=== PATIENT | female | born 1960 | race Caucasian/White ===

== ENCOUNTER 2023-03-25 16:29 | Emergency (ER) | payer BC ==
[~2023-03-25] VITALS: Ht 175.3 cm; Wt 84.1 kg
[2023-03-25] MEDS ORDERED: morphine 4 MG/ML inj SYRINge IM ONE (17:55)
[2023-03-25] MEDS ORDERED: ondansetron 4mg rapidly disintigrating tab PO ONE (17:55)
[2023-03-25 18:08] LABS: BASOPHILS # (AUTO) 0.2 X10'3 (0-0.2); BASOPHILS % (AUTO) 0.7 % (0-1); EOSINOPHILS % (AUTO) 0 % (0-6); HEMATOCRIT 43.9 % (35.0-45.0); HEMOGLOBIN 14.7 g/dl (12.0-16.0); LYMPHOCYTES # (AUTO) 1.4 X10'3 (1.1-4.8); LYMPHOCYTES % (AUTO) 6.7 % (21-51); MEAN CORPUSCULAR HEMOGLOBIN 31.4 PG (27.0-31.0); MEAN CORPUSCULAR HGB CONC 33.4 g/dL (33.0-36.5); MEAN CORPUSCULAR VOLUME 93.9 FL (78-98); MEAN PLATELET VOLUME 9.6 FL (7.4-10.4); MONOCYTES # (AUTO) 1.2 X10'3 (0-0.9); MONOCYTES % (AUTO) 5.8 % (2-12); NEUTROPHILS # (AUTO) 18.5 X10'3 (1.8-7.7); NEUTROPHILS % (AUTO) 86.8 % (42-75); PLATELET COUNT 472 X10'3 (140-440); RED BLOOD COUNT 4.67 X10'6 (4.20-5.60); RED CELL DISTRIBUTION WIDTH 13.4 % (11.5-14.5); WHITE BLOOD COUNT 21.3 X10'3 (4.5-11.0)
[2023-03-25 18:11] LABS: ALANINE AMINOTRANSFERASE 52 U/L (12-78); ALBUMIN 4.5 G/DL (3.4-5.0); ALBUMIN/GLOBULIN RATIO 1.1 (1.1-1.5); ALKALINE PHOSPHATASE 199 IU/L (46-116); ANION GAP 14 (8-16); ASPARTATE AMINO TRANSFERASE 33 U/L (10-37); BILIRUBIN,TOTAL 1.3 MG/DL (0.1-1.0); BLOOD UREA NITROGEN 13 MG/DL (7-18); BUN/CREATININE RATIO 16.5 (10.0-20.0); CALCIUM 9.2 MG/DL (8.5-10.1); CHLORIDE 102 MMOL/L (99-107); CREATININE 0.79 MG/DL (0.40-0.90); GLUCOSE 172 MG/DL (70-104); LIPASE 51 U/L (73-393); POTASSIUM 3.7 MMOL/L (3.5-5.1); SODIUM 139 MMOL/L (135-145); TOTAL CARBON DIOXIDE 22.8 MMOL/L (24-32); TOTAL PROTEIN 8.6 G/DL (6.4-8.2); eGFR 74 ML/MIN
[2023-03-25] MEDS ORDERED: magnesium citrate 296ml oral solution PO ONE (19:00)
[2023-03-25] MEDS ORDERED: lactulose 20gm/30ml cup PO ONE (19:00)
[2023-03-25 22:09] VITALS: BP 128/81
== END 2023-03-25 22:10 | disposition home or self-care (01) ==
LOC: ER 16:31
DX: K59.00 Constipation, unspecified (principal)
CPT/HCPCS: 36415; 74176; 76700; 80053; 83690; 85025; 96372; 99285; J2270

== ENCOUNTER 2023-07-05 07:29 | Inpatient (IN) | payer BC ==
[2023-07-02 15:06] LABS: ALBUMIN 3.7 G/DL (3.4-5.0); ALBUMIN/GLOBULIN RATIO 0.9 (1.1-1.5); ALKALINE PHOSPHATASE 156 IU/L (46-116); BLOOD UREA NITROGEN 17 MG/DL (7-18); BUN/CREATININE RATIO 14.3 (10.0-20.0); CALCIUM 9.7 MG/DL (8.5-10.1); CHLORIDE 101 MMOL/L (99-107); CREATININE 1.19 MG/DL (0.40-0.90); PRE OP ALT 18 U/L (30-65); PRE OP ANION GAP 11 (8-16); PRE OP AST 26 U/L (10-37); PRE OP BILIRUB, TOTAL 0.7 MG/DL (0.0-1.0); PRE OP GLUCOSE 94 MG/DL (70-104); PRE OP SODIUM 137 MMOL/L (135-145); TOTAL CARBON DIOXIDE 24.8 MMOL/L (24-32); eGFR 46 ML/MIN
[2023-07-02 15:18] LABS: EOSINOPHILS # (AUTO) 0.2 X10'3 (0-0.9); LYMPHOCYTES # (AUTO) 2.1 X10'3 (1.1-4.8); LYMPHOCYTES % (AUTO) 20.2 % (21-51); MONOCYTES # (AUTO) 1.5 X10'3 (0-0.9)
[2023-07-02 15:20] LABS: BASOPHILS # (AUTO) 0.1 X10'3 (0-0.2); BASOPHILS % (AUTO) 0.7 % (0-1); EOSINOPHILS % (AUTO) 2.3 % (0-6); MEAN CORPUSCULAR HEMOGLOBIN 30.5 PG (27.0-31.0); MEAN CORPUSCULAR HGB CONC 33.5 g/dL (33.0-36.5); MEAN CORPUSCULAR VOLUME 91.1 FL (78-98); MEAN PLATELET VOLUME 10.2 FL (7.4-10.4); MONOCYTES % (AUTO) 14.3 % (2-12); NEUTROPHILS # (AUTO) 6.4 X10'3 (1.8-7.7); NEUTROPHILS % (AUTO) 62.5 % (42-75); PRE OP HEMOGLOBIN 13.4 g/dL (12.0-16.0); PRE OP PLATELET COUNT 379 X10'3 (140-440); PRE OP WHITE BLOOD COUNT 10.3 10'3 (4.8-10.8); RED BLOOD COUNT 4.39 X10'6 (4.20-5.60)
[~2023-07-05] VITALS: Ht 172.7 cm; Wt 82.2 kg
[2023-07-05] VITALS (23 sets, daily range): BP systolic 118–155; BP diastolic 77–104; PULSE 88–117; RESP 11–20; TEMP 97.9–98.8; O2SAT 90–97
[~2023-07-05 07:29] MED LIST: ASPI-128 PO; MALTODEXTRIN/FRUCTOSE 0.68 KCAL/ML LIQUID 296ML BOTTLE PO ONE; ceFOXitin 2GM-NS 100mL ADDvant 100 ML IV ONE; famotidine 20mg tablet PO ONE; heparin, porcine 5000 units/ml vial SQ ONE; metroNIDAZOLE-Flagyl 500mg/NS 100ML IVPB IV ONE; ringers solution, lacted 1,000 ML IV SCH
[2023-07-05] MEDS ORDERED: morphine 2 MG/ML inj. syringe IV PRN ×2 (08:55→10:20)
[2023-07-05] MEDS ORDERED: midazolam 1 mg/ML 2ml injection ONE (10:13)
[2023-07-05] MEDS ORDERED: propofol inj 20 ML IV ONE (10:13)
[2023-07-05] MEDS ORDERED: fentaNYL /PF 50mcg/ml 5ml ampule ONE (10:13)
[2023-07-05] MEDS ORDERED: rocuronium 10mg/ml inj IV ONE ×2 (10:13→12:52)
[2023-07-05] MEDS ORDERED: tobramycin 40mg/ml inj ONE (10:14)
[2023-07-05] MEDS ORDERED: povidone-iodine 10% ointment 1 APPLIC APPLIC TP ONE (10:14)
[2023-07-05] MEDS ORDERED: LIDOcaine 1% w/EPI 1:100,000 inj. MDV 50 ML VIAL ONE (10:14)
[2023-07-05] MEDS ORDERED: BUPIVAcaine/PF 2.5 mg/ml (0.25%) 30ml vial ONE (10:14)
[2023-07-05] MEDS ORDERED: morphine 4 MG/ML inj SYRINge IV PRN (10:20)
[2023-07-05] MEDS ORDERED: ringers solution, lacted 1,000 ML IV SCH (10:20)
[2023-07-05] MEDS ORDERED: ondansetron/PF 4mg/2ml inj IV PRN ×2 (10:20→14:15)
[2023-07-05] MEDS ORDERED: proCHLORperazine 10 MG/2 ml inj IV PRN (10:20)
[2023-07-05] MEDS ORDERED: meperidine/PF 25mg/ml syringe IV PRN ×3 (10:20)
[2023-07-05] MEDS ORDERED: neostigmine methylsulfate 1 MG/ML 10ml vial ONE (10:42)
[2023-07-05] MEDS ORDERED: ondansetron/PF 4mg/2ml inj ONE (10:42)
[2023-07-05] MEDS ORDERED: glycopyrrolate 0.2mg/ml inj ONE (10:42)
[2023-07-05] MEDS ORDERED: sevoflurane 250ml liquid IH ONE (10:42)
[2023-07-05] MEDS ORDERED: albumin (Human) 5% 250ml 250 ML IV ONE (12:49)
[2023-07-05] MEDS ORDERED: dexamethasone sod phosphate 4mg/ml inj. ONE (12:50)
[2023-07-05] MEDS ORDERED: acetaminophen 1,000mg/100ml IV 100 ML IV ONE (13:35)
[2023-07-05] MEDS ORDERED: naloxone 0.4 mg/ml inj IV PRN (14:15)
[2023-07-05] MEDS: HYDROmorph/NS 0.2 mg/ml PCA 100 ML IV SCH ×5 (14:53→23:00)
[2023-07-05] MEDS ORDERED: HYDROmorph/NS 0.2 mg/ml PCA 100 ML IV SCH (15:00)
[2023-07-05] MEDS: ceFOXitin inj 1,000 MG in normal saline 100ml IV soln 100 ML IV SCH (16:00)
[2023-07-05 18:23] LABS: BFAPPEAR BLOODY; BFSOURCE ASCITES FLD
[2023-07-05 18:24] LABS: BF RBC COUNT 10550 /CU MM; BF WBC COUNT 500 /CU MM (0-1000); BFCOLOR RED; BFVOLUME 95 ML
[2023-07-05 18:25] LABS: EOSINOPHILS,BODY FLUID 2 %; LYMPHOCYTES,BODY FLUID 58 %; MONOCYTES,BODY FLUID 40 %; NEUTROPHILS,BODY FLUID 0 %
[2023-07-05] MEDS: potassium CL 20mEq in D5-1/2NS 1,000 ML IV SCH (20:22)
[2023-07-05] MEDS: heparin, porcine 5000 units/ml vial SQ SCH (20:23)
[2023-07-05] MEDS: normal saline 1000ml 1,000 ML IV SCH (22:58)
[2023-07-06] MEDS: ceFOXitin inj 1,000 MG in normal saline 100ml IV soln 100 ML IV SCH (00:28)
[2023-07-06] MEDS: HYDROmorph/NS 0.2 mg/ml PCA 100 ML IV SCH ×12 (01:00→23:00)
[2023-07-06 02:00] VITALS: BP 140/78; PULSE 100; RESP 16; TEMP 97.8; O2SAT 94
[2023-07-06] MEDS: potassium CL 20mEq in D5-1/2NS 1,000 ML IV SCH ×3 (05:09→23:43)
[2023-07-06 06:00] VITALS: BP 146/81; PULSE 102; RESP 16; TEMP 97.7; O2SAT 95
[2023-07-06 07:09] LABS: BASOPHILS # (AUTO) 0.1 X10'3 (0-0.2); EOSINOPHILS % (AUTO) 0.3 % (0-6); HEMATOCRIT 35.3 % (35.0-45.0); HEMOGLOBIN 11.6 g/dl (12.0-16.0); LYMPHOCYTES # (AUTO) 2.4 X10'3 (1.1-4.8); LYMPHOCYTES % (AUTO) 20.1 % (21-51); MEAN CORPUSCULAR HGB CONC 32.8 g/dL (33.0-36.5); MEAN CORPUSCULAR VOLUME 91.3 FL (78-98); MONOCYTES # (AUTO) 1.9 X10'3 (0-0.9); NEUTROPHILS # (AUTO) 7.4 X10'3 (1.8-7.7); NEUTROPHILS % (AUTO) 62.6 % (42-75); PLATELET COUNT 344 X10'3 (140-440); RED BLOOD COUNT 3.86 X10'6 (4.20-5.60); RED CELL DISTRIBUTION WIDTH 13.3 % (11.5-14.5); WHITE BLOOD COUNT 11.8 X10'3 (4.5-11.0)
[2023-07-06 07:12] LABS: ANION GAP 10 (8-16); BLOOD UREA NITROGEN 10 MG/DL (7-18); BUN/CREATININE RATIO 8.5 (10.0-20.0); CALCIUM 8.9 MG/DL (8.5-10.1); CHLORIDE 102 MMOL/L (99-107); CREATININE 1.18 MG/DL (0.40-0.90); GLUCOSE 105 MG/DL (70-104); SODIUM 137 MMOL/L (135-145); TOTAL CARBON DIOXIDE 24.7 MMOL/L (24-32); eCRCL 51 ML/MIN; eGFR 47 ML/MIN
[2023-07-06 08:00] VITALS: RESP 16
[2023-07-06] MEDS: heparin, porcine 5000 units/ml vial SQ SCH ×2 (08:00→20:24)
[2023-07-06 08:36] LABS: PLATELET ESTIMATE NORMAL; TOTAL CELLS COUNTED 100
[2023-07-06 10:00] VITALS: BP 139/80; PULSE 100; RESP 16; TEMP 97.4; O2SAT 96
[2023-07-06] MEDS ORDERED: PCA WASTE DOCUMENTATION 1 MG ML MC SCH (13:55)
[2023-07-06 18:00] VITALS: BP 137/79; PULSE 101; RESP 16; TEMP 97.4; O2SAT 97
[2023-07-06 22:00] VITALS: BP 134/86; PULSE 103; RESP 16; TEMP 98.4; O2SAT 96
[2023-07-07] MEDS: HYDROmorph/NS 0.2 mg/ml PCA 100 ML IV SCH ×12 (01:00→23:00)
[2023-07-07 06:00] VITALS: BP 135/81; PULSE 108; RESP 16; TEMP 98.3; O2SAT 94
[2023-07-07 06:54] LABS: BASOPHILS # (AUTO) 0.1 X10'3 (0-0.2); BASOPHILS % (AUTO) 1.2 % (0-1); EOSINOPHILS # (AUTO) 0.4 X10'3 (0-0.9); HEMATOCRIT 35.8 % (35.0-45.0); LYMPHOCYTES # (AUTO) 2.1 X10'3 (1.1-4.8); LYMPHOCYTES % (AUTO) 18.8 % (21-51); MEAN CORPUSCULAR HEMOGLOBIN 30.7 PG (27.0-31.0); MEAN CORPUSCULAR HGB CONC 33.6 g/dL (33.0-36.5); MEAN CORPUSCULAR VOLUME 91.3 FL (78-98); MONOCYTES # (AUTO) 1.7 X10'3 (0-0.9); MONOCYTES % (AUTO) 15.2 % (2-12); NEUTROPHILS # (AUTO) 6.6 X10'3 (1.8-7.7); NEUTROPHILS % (AUTO) 60.8 % (42-75); PLATELET COUNT 370 X10'3 (140-440); RED BLOOD COUNT 3.92 X10'6 (4.20-5.60); RED CELL DISTRIBUTION WIDTH 13.6 % (11.5-14.5); WHITE BLOOD COUNT 10.9 X10'3 (4.5-11.0)
[2023-07-07 07:38] LABS: ALBUMIN 2.7 G/DL (3.4-5.0); ANION GAP 7 (8-16); BLOOD UREA NITROGEN 13 MG/DL (7-18); BUN/CREATININE RATIO 11.3 (10.0-20.0); CALCIUM 8.9 MG/DL (8.5-10.1); CHLORIDE 102 MMOL/L (99-107); CREATININE 1.15 MG/DL (0.40-0.90); GLUCOSE 112 MG/DL (70-104); POTASSIUM 4.4 MMOL/L (3.5-5.1); SODIUM 134 MMOL/L (135-145); TOTAL CARBON DIOXIDE 25.3 MMOL/L (24-32); eCRCL 52 ML/MIN; eGFR 48 ML/MIN
[2023-07-07] MEDS: heparin, porcine 5000 units/ml vial SQ SCH ×2 (07:53→20:47)
[2023-07-07 10:00] VITALS: BP 147/84; PULSE 90; RESP 14; TEMP 97.7; O2SAT 90
[2023-07-07] MEDS ORDERED: heparin sodium, porcine/PF 100unit/ml 5ML syringe ONE (13:13)
[2023-07-07] MEDS ORDERED: fentaNYL/PF 50MCG/1 ML 2ML syringe ONE (13:13)
[2023-07-07] MEDS ORDERED: midazolam 1 mg/ML 2ml injection ONE (13:13)
[2023-07-07] MEDS: potassium CL 20mEq in D5-1/2NS 1,000 ML IV SCH (13:37)
[2023-07-07] MEDS: normal saline 1000ml 1,000 ML IV SCH ×2 (13:50→14:15)
[2023-07-07] MEDS ORDERED: diphenhydrAMINE 50 mg/ml inj ONE (13:50)
[2023-07-07 18:00] VITALS: BP 142/76; PULSE 90; RESP 16; TEMP 97.7; O2SAT 99
[2023-07-07 20:00] VITALS: RESP 16; O2SAT 96
[2023-07-07] MEDS ORDERED: heparin, porcine 5000 units/ml vial SQ SCH (20:00)
[2023-07-07 22:00] VITALS: BP 146/85; PULSE 96; RESP 16; TEMP 98.3; O2SAT 95
[2023-07-08] MEDS: HYDROcodone/acetaminophen 5mg/325mg tablet PO PRN ×4 (00:03→09:10)
[2023-07-08] MEDS: normal saline 1000ml 1,000 ML IV SCH (03:10)
[2023-07-08 06:00] VITALS: BP 142/83; PULSE 93; TEMP 97.9; O2SAT 93
[2023-07-08 06:37] LABS: ALBUMIN 2.5 G/DL (3.4-5.0); ANION GAP 6 (8-16); BLOOD UREA NITROGEN 12 MG/DL (7-18); BUN/CREATININE RATIO 10.5 (10.0-20.0); CALCIUM 8.8 MG/DL (8.5-10.1); CHLORIDE 103 MMOL/L (99-107); CREATININE 1.14 MG/DL (0.40-0.90); GLUCOSE 104 MG/DL (70-104); POTASSIUM 4.1 MMOL/L (3.5-5.1); SODIUM 135 MMOL/L (135-145); TOTAL CARBON DIOXIDE 25.8 MMOL/L (24-32); eCRCL 52 ML/MIN; eGFR 48 ML/MIN
[2023-07-08 06:41] LABS: BASOPHILS # (AUTO) 0.2 X10'3 (0-0.2); BASOPHILS % (AUTO) 1.4 % (0-1); EOSINOPHILS # (AUTO) 0.5 X10'3 (0-0.9); EOSINOPHILS % (AUTO) 4.4 % (0-6); HEMATOCRIT 34.9 % (35.0-45.0); HEMOGLOBIN 11.5 g/dl (12.0-16.0); LYMPHOCYTES % (AUTO) 17.7 % (21-51); MEAN PLATELET VOLUME 9.9 FL (7.4-10.4); MONOCYTES # (AUTO) 1.5 X10'3 (0-0.9); MONOCYTES % (AUTO) 13.1 % (2-12); NEUTROPHILS # (AUTO) 7.3 X10'3 (1.8-7.7); NEUTROPHILS % (AUTO) 63.4 % (42-75); PLATELET COUNT 324 X10'3 (140-440); RED BLOOD COUNT 3.83 X10'6 (4.20-5.60); RED CELL DISTRIBUTION WIDTH 13.1 % (11.5-14.5); WHITE BLOOD COUNT 11.5 X10'3 (4.5-11.0)
[2023-07-08 08:00] VITALS: RESP 15
[2023-07-08] MEDS: lactose-reduced food (Ensure Enlive) - 237ml bottle PO SCH ×3 (08:00→18:00)
[2023-07-08] MEDS: heparin, porcine 5000 units/ml vial SQ SCH ×2 (09:12→19:49)
[2023-07-08 10:00] VITALS: BP 131/77; PULSE 110; RESP 15; TEMP 97.1; O2SAT 92
[2023-07-08] MEDS: oxyCODONE/APAP 5-325mg tablet PO PRN ×4 (11:29→20:28)
[2023-07-08] MEDS ORDERED: albumin (human) 25% 100 ML IV solution IV ONE (17:30)
[2023-07-08] MEDS ORDERED: APIX2.5T PO (18:23)
[2023-07-08 20:00] VITALS: RESP 15
[2023-07-08 22:00] VITALS: BP 141/89; PULSE 106; RESP 16; TEMP 98.1; O2SAT 90
[2023-07-09] MEDS: oxyCODONE/APAP 5-325mg tablet PO PRN ×3 (02:17→11:55)
[2023-07-09 06:00] VITALS: BP 153/77; PULSE 97; RESP 18; TEMP 98.1; O2SAT 90
[2023-07-09 07:23] LABS: BASOPHILS # (AUTO) 0.2 X10'3 (0-0.2); BASOPHILS % (AUTO) 1.3 % (0-1); EOSINOPHILS # (AUTO) 0.5 X10'3 (0-0.9); EOSINOPHILS % (AUTO) 4.2 % (0-6); HEMATOCRIT 35.3 % (35.0-45.0); HEMOGLOBIN 11.7 g/dl (12.0-16.0); LYMPHOCYTES # (AUTO) 1.9 X10'3 (1.1-4.8); MEAN CORPUSCULAR HEMOGLOBIN 29.8 PG (27.0-31.0); MEAN CORPUSCULAR HGB CONC 33.1 g/dL (33.0-36.5); MEAN CORPUSCULAR VOLUME 89.8 FL (78-98); MEAN PLATELET VOLUME 9.8 FL (7.4-10.4); MONOCYTES # (AUTO) 1.5 X10'3 (0-0.9); MONOCYTES % (AUTO) 12.3 % (2-12); NEUTROPHILS % (AUTO) 66.2 % (42-75); PLATELET COUNT 330 X10'3 (140-440); RED BLOOD COUNT 3.94 X10'6 (4.20-5.60); RED CELL DISTRIBUTION WIDTH 13.1 % (11.5-14.5); WHITE BLOOD COUNT 12.1 X10'3 (4.5-11.0)
[2023-07-09 07:39] LABS: ANION GAP 8 (8-16); BLOOD UREA NITROGEN 11 MG/DL (7-18); BUN/CREATININE RATIO 9.3 (10.0-20.0); CALCIUM 9.3 MG/DL (8.5-10.1); CHLORIDE 103 MMOL/L (99-107); CREATININE 1.18 MG/DL (0.40-0.90); GLUCOSE 91 MG/DL (70-104); POTASSIUM 3.9 MMOL/L (3.5-5.1); SODIUM 137 MMOL/L (135-145); TOTAL CARBON DIOXIDE 25.6 MMOL/L (24-32); eCRCL 51 ML/MIN; eGFR 47 ML/MIN
[2023-07-09 08:00] VITALS: RESP 18; O2SAT 90
[2023-07-09] MEDS ORDERED: lactose-reduced food (Ensure High Protein) 237ml bottle PO SCH (08:00)
[2023-07-09] MEDS: lactose-reduced food (Ensure Enlive) - 237ml bottle PO SCH (08:11)
[2023-07-09] MEDS ORDERED: apixaban 2.5mg tablet PO SCH (09:00)
[2023-07-09 11:55] VITALS: RESP 16
== END 2023-07-09 11:56 | disposition home or self-care (01) | DRG 357 ==
LOC: PAS IN 07:29 → ORTHO 4S 17:17
PROVIDERS: ADMIT Colon & Rectal Surgery; ATTEND Colon & Rectal Surgery
PROC: 0D9W0ZX Drainage of Peritoneum, Open Approach, Diagnostic (ICD-10-PCS; principal; 2023-07-06)
PROC: 02HV33Z Insertion of Infusion Device into Superior Vena Cava, Percutaneous Approach (ICD-10-PCS; 2023-07-07)
PROC: B548ZZA Ultrasonography of Superior Vena Cava, Guidance (ICD-10-PCS; 2023-07-07)
PROC: 0JH63XZ Insertion of Tunneled Vascular Access Device into Chest Subcutaneous Tissue and Fascia, Percutaneous Approach (ICD-10-PCS; 2023-07-07)
DX: K56.609 Unspecified intestinal obstruction, unspecified as to partial versus complete obstruction (principal); C56.9 Malignant neoplasm of unspecified ovary; R18.0 Malignant ascites; K59.00 Constipation, unspecified; Z79.01 Long term (current) use of anticoagulants
CPT/HCPCS: 36561; Z7506; Z7508; 36415; 76937; 77001; 80048; 80053; 82948; 85007; 85025; 86885; 86900; 86901; 87081; 89051; 93005; 97110; 97116; 97161; 97530; 97535; 99152; 99153; A4346; A4355; A4402; A4615; A4618; A4620; A4649; A6449; A7000; C1758; C1769; C1788; C1894; G0378; J0131; J0694; J1100; J1170; J1200; J1642; J1644; J2250; J2270; J2405; J2704; J2710; J3010; J3260; J3480; J3490; J7030; J7040; J7120; P9045; P9047